=== PATIENT | male | born 1950 | race Caucasian/White ===

== ENCOUNTER 2022-05-22 10:15 | Day surgery (SDC) | payer MEDICARE, OTHER ==
[2022-05-19 14:27] LABS: BASOPHILS % (AUTO) 0.6 % (0-1); EOSINOPHILS # (AUTO) 0.2 X10'3 (0-0.9); EOSINOPHILS % (AUTO) 2.6 % (0-6); LYMPHOCYTES # (AUTO) 1.3 X10'3 (1.1-4.8); LYMPHOCYTES % (AUTO) 17.9 % (21-51); MEAN CORPUSCULAR HEMOGLOBIN 31.8 PG (27.0-31.0); MEAN CORPUSCULAR HGB CONC 34.7 g/dL (33.0-36.5); MEAN CORPUSCULAR VOLUME 91.7 FL (78-98); MEAN PLATELET VOLUME 6.7 FL (7.4-10.4); MONOCYTES # (AUTO) 0.4 X10'3 (0-0.9); MONOCYTES % (AUTO) 6.2 % (2-12); NEUTROPHILS # (AUTO) 5.1 X10'3 (1.8-7.7); NEUTROPHILS % (AUTO) 72.7 % (42-75); PRE OP HEMATOCRIT 39.1 % (42.0-52.0); PRE OP HEMOGLOBIN 13.6 g/dL (14.0-17.9); PRE OP PLATELET COUNT 251 X10'3 (140-440); RED BLOOD COUNT 4.26 X10'6 (4.70-6.10); RED CELL DISTRIBUTION WIDTH 13.1 % (11.5-14.5)
[2022-05-19 14:29] LABS: CLARITY,URINE CLEAR (Clear); COLOR,URINE YELLOW (Yellow); GLUCOSE, URINE NEGATIVE (Neg); KETONES,URINE NEGATIVE (Neg); LEUKOCYTE ESTERASE ,URINE NEGATIVE (Neg); NITRITES, URINE NEGATIVE (Neg); OCCULT BLOOD,URINE NEGATIVE (Neg); PROTEIN,URINE NEGATIVE (Neg); UROBILINOGEN,URINE 0.2 E.U/dL (0.2-1.0)
[2022-05-19 14:30] LABS: UA COLLECTION TYPE VOIDED
[2022-05-19 14:42] LABS: ALBUMIN/GLOBULIN RATIO 1.3 (1.1-1.5); ALKALINE PHOSPHATASE 50 IU/L (46-116); BLOOD UREA NITROGEN 24 MG/DL (7-18); BUN/CREATININE RATIO 12.2 (5.4-32.0); CALCIUM 9.7 MG/DL (8.5-10.1); CHLORIDE 103 MMOL/L (99-107); CREATININE 1.97 MG/DL (0.60-1.10); PRE OP ALT 26 U/L (30-65); PRE OP ANION GAP 8 (8-16); PRE OP AST 23 U/L (10-37); PRE OP BILIRUB, TOTAL 0.5 MG/DL (0.0-1.0); PRE OP GLUCOSE 152 MG/DL (70-104); PRE OP POTASSIUM 3.9 MMOL/L (3.4-5.1); PRE OP SODIUM 138 MMOL/L (135-145); TOTAL CARBON DIOXIDE 26.7 MMOL/L (24-32); TOTAL PROTEIN 7.2 G/DL (6.4-8.2); eGFR 33 ML/MIN
[~2022-05-22] VITALS: Ht 182.9 cm; Wt 83.9 kg
[2022-05-22] VITALS (11 sets, daily range): BP systolic 126–154; BP diastolic 63–94
[~2022-05-22 10:15] MED LIST: DULO30CA52 PO; FLO0.4C PO; LAMO200T10 PO; LOSA25TA96 PO; MULT-1085 PO; OMEG-44 PO; SILD20TA2 PO; SIMV10TA98 PO; ceFAZolin inj. 2,000 MG in dextrose 5%-water 100 ML IV ONE; famotidine 20mg tablet PO ONE; ringers solution, lacted 1,000 ML IV SCH
[2022-05-22] MEDS ORDERED: ondansetron/PF 4mg/2ml inj IV PRN (10:20)
[2022-05-22] MEDS ORDERED: morphine 2 MG/ML inj. syringe IV PRN (10:20)
[2022-05-22] MEDS ORDERED: fentaNYL/PF 50MCG/1 ML 2ML syringe IV PRN ×2 (10:20)
[2022-05-22] MEDS ORDERED: ringers solution, lacted 1,000 ML IV SCH (10:20)
[2022-05-22] MEDS ORDERED: labetalol 20mg/4ml (5mg/ml) syringe IV PRN (10:20)
[2022-05-22] MEDS ORDERED: hydrALAZINE 20mg/ml inj. IV PRN (10:20)
[2022-05-22] MEDS ORDERED: morphine 4 MG/ML inj SYRINge IV PRN (10:20)
[2022-05-22] MEDS ORDERED: bacitracin 15gm ointment TP ONE ×2 (13:11→13:15)
[2022-05-22] MEDS ORDERED: ROPIVAcaine 0.5% (5mg/ml) 30ml vial ONE ×2 (13:11→13:22)
[2022-05-22] MEDS ORDERED: BUPIVAcaine/PF 2.5 mg/ml (0.25%) 30ml vial ONE (13:11)
[2022-05-22] MEDS ORDERED: BUPIVAcaine/PF 2.5mg/ml (0.25%) 10ml vial ONE (13:15)
[2022-05-22] MEDS ORDERED: fentaNYL/PF 50MCG/1 ML 2ML syringe ONE (13:19)
[2022-05-22] MEDS ORDERED: midazolam 1 mg/ML 2ml injection ONE (13:19)
[2022-05-22] MEDS ORDERED: propofol inj 20 ML IV ONE (13:19)
[2022-05-22] MEDS ORDERED: ondansetron/PF 4mg/2ml inj ONE (14:37)
--- NOTE | 2022-05-22 14:51 | NUR ---
Received from OR via , accompanied by Anesthesiologist MEHUL and OR NURSE report given by Anesthesiolgist. PT DROWSY BUT ABLE TO FOLLOW COMMANDS. DENIES PAIN OR DISCOMFORT. RT FOOT ELEVATED. VSS Addendum: 05/22/22 at 1544 by Shira Fox RN Amended: Links added.
--- NOTE | 2022-05-22 16:41 | NUR ---
PT D/C HOME VIA WHEELCHAIR. CAGE TENDER BROUGHT PT TO CAR AND ASSISTED THE PT GETTING INTO THE CAR. PT HAS CRUTCHES AND WEDGE FOR ELEVATION. STATES HE HAS HIS PAIN MEDS AND F/U APPT SCHEDULED. PT TOLERATING LIQUIDS AND COMFORTABLE PAIN LEVEL. Addendum: 05/22/22 at 1656 by Shira Fox RN Amended: Links added.
== END 2022-05-22 16:41 | disposition home or self-care (01) ==
LOC: PAS 10:15
PROVIDERS: ATTEND Podiatrist Foot & Ankle Surgery
DX: S82.831A Other fracture of upper and lower end of right fibula, initial encounter for closed fracture (principal); I10 Essential (primary) hypertension; W19.XXXA Unspecified fall, initial encounter; Y93.89 Activity, other specified; Y92.89 Other specified places as the place of occurrence of the external cause; Y99.8 Other external cause status; Z79.899 Other long term (current) drug therapy; Z98.890 Other specified postprocedural states; G89.18 Other acute postprocedural pain
CPT/HCPCS: 27792; 36415; 64450; 76942; 80053; 81003; 82948; 85025; 93005; A6223; C1713; C1776; J0690; J2250; J2270; J2405; J2704; J2795; J3010; J7030; J7060; J7120; Z7506; Z7508; Z7512; A4618; A6253; A6449; A7000; J3490

== ENCOUNTER 2023-08-02 18:29 | Emergency (ER) | payer MEDICARE, OTHER ==
[~2023-08-02 18:29] MED LIST changes: +LOSA-415 PO; -LOSA25TA96 PO; -ceFAZolin inj. 2,000 MG in dextrose 5%-water 100 ML IV ONE; -famotidine 20mg tablet PO ONE; -ringers solution, lacted 1,000 ML IV SCH
[2023-08-02 19:26] LABS: BASOPHILS # (AUTO) 0.1 X10'3 (0-0.2); EOSINOPHILS # (AUTO) 0.2 X10'3 (0-0.9); EOSINOPHILS % (AUTO) 2.5 % (0-6); HEMATOCRIT 36.2 % (42.0-52.0); HEMOGLOBIN 12.4 g/dl (14.0-17.9); LYMPHOCYTES # (AUTO) 1.2 X10'3 (1.1-4.8); LYMPHOCYTES % (AUTO) 18.7 % (21-51); MEAN CORPUSCULAR HEMOGLOBIN 31.8 PG (27.0-31.0); MEAN CORPUSCULAR HGB CONC 34.2 g/dL (33.0-36.5); MEAN PLATELET VOLUME 6.6 FL (7.4-10.4); MONOCYTES # (AUTO) 0.3 X10'3 (0-0.9); MONOCYTES % (AUTO) 5.6 % (2-12); NEUTROPHILS # (AUTO) 4.5 X10'3 (1.8-7.7); NEUTROPHILS % (AUTO) 72.2 % (42-75); PLATELET COUNT 207 X10'3 (140-440); RED BLOOD COUNT 3.89 X10'6 (4.70-6.10); RED CELL DISTRIBUTION WIDTH 12.9 % (11.5-14.5); WHITE BLOOD COUNT 6.2 X10'3 (4.5-11.0)
[2023-08-02 19:41] LABS: ALANINE AMINOTRANSFERASE 23 U/L (12-78); ALBUMIN 3.7 G/DL (3.4-5.0); ALBUMIN/GLOBULIN RATIO 1.1 (1.1-1.5); ALKALINE PHOSPHATASE 41 IU/L (46-116); ANION GAP 10 (8-16); ASPARTATE AMINO TRANSFERASE 22 U/L (10-37); BILIRUBIN,TOTAL 0.5 MG/DL (0.1-1.0); BLOOD UREA NITROGEN 29 MG/DL (7-18); BUN/CREATININE RATIO 11.2 (10.0-20.0); CALCIUM 9.4 MG/DL (8.5-10.1); CHLORIDE 105 MMOL/L (99-107); CREATININE 2.59 MG/DL (0.60-1.10); ETHANOL < 10 MG/DL (<10); GLUCOSE 117 MG/DL (70-104); POTASSIUM 4.1 MMOL/L (3.5-5.1); SODIUM 140 MMOL/L (135-145); TOTAL CARBON DIOXIDE 25.1 MMOL/L (24-32); TOTAL PROTEIN 7.2 G/DL (6.4-8.2); eGFR 24 ML/MIN
[2023-08-02 19:47] LABS: URINE AMPHETAMINE SCREEN NEGATIVE (Neg); URINE BARBITUATE SCREEN NEGATIVE (Neg); URINE BENZODIAZEPINES SCREEN NEGATIVE (Neg); URINE CANNABINOID SCREEN NEGATIVE (Neg); URINE COCAINE SCREEN NEGATIVE (Neg); URINE METHADONE SCREEN NEGATIVE (Neg); URINE OPIATE SCREEN NEGATIVE (Neg); URINE PHENCYCLIDINE SCREEN NEGATIVE (Neg)
[2023-08-03] MEDS ORDERED: traZODone 50mg tablet PO PRN (00:20)
[2023-08-03 03:08] LABS: BILIRUBIN,URINE NEGATIVE (Neg); CLARITY,URINE CLEAR (Clear); COLOR,URINE YELLOW (Yellow); GLUCOSE, URINE NEGATIVE (Neg); KETONES,URINE NEGATIVE (Neg); LEUKOCYTE ESTERASE ,URINE NEGATIVE (Neg); NITRITES, URINE NEGATIVE (Neg); OCCULT BLOOD,URINE NEGATIVE (Neg); PH,URINE 6.5 (4.8-8.0); PROTEIN,URINE NEGATIVE (Neg); UROBILINOGEN,URINE 0.2 E.U/dL (0.2-1.0)
[2023-08-03 03:14] LABS: UA COLLECTION TYPE CLN CATCH MIDSTREAM
[2023-08-03 06:06] VITALS: BP 124/74; PULSE 70; TEMP 97; O2SAT 98
[2023-08-03 07:35] VITALS: RESP 17
[2023-08-03] MEDS: quetiapine 100mg tablet PO SCH ×2 (07:42→12:20)
[2023-08-03] MEDS ORDERED: duloxetine 30mg CAPSULE.DR PO SCH (08:00)
[2023-08-03] MEDS ORDERED: multivitamins, therapeutics tablet PO SCH (08:00)
[2023-08-03] MEDS ORDERED: OMEGA-3/DHA/EPA/FISH OIL 1 EACH CAPSULE.DR PO SCH (08:00)
[2023-08-03] MEDS ORDERED: fluvoxamine 25 MG tablet PO SCH (08:00)
[2023-08-03] MEDS ORDERED: losartan 25mg tablet PO SCH (21:00)
[2023-08-03] MEDS ORDERED: tamsulosin 0.4mg capsule PO SCH (21:00)
[2023-08-03] MEDS ORDERED: lamoTRIgine 100mg tablet PO SCH (21:00)
[2023-08-03] MEDS ORDERED: atorvastatin 10mg tablet PO SCH (21:00)
[2023-08-03] MEDS ORDERED: quetiapine 100mg tablet PO SCH (21:00)
== END 2023-08-03 17:03 | disposition home or self-care (01) ==
LOC: ER 18:29
DX: R45.851 Suicidal ideations (principal); Z20.822 Contact with and (suspected) exposure to COVID-19; F32.A Depression, unspecified; N18.9 Chronic kidney disease, unspecified; Z88.8 Allergy status to other drugs, medicaments and biological substances; Z79.899 Other long term (current) drug therapy
CPT/HCPCS: 36415; 80053; 80305; 80320; 81003; 84443; 85025; 87811; 99285

== ENCOUNTER 2023-08-09 15:59 | Emergency (ER) | payer MEDICARE, OTHER ==
[~2023-08-09] VITALS: Ht 182.9 cm; Wt 81.1 kg
[~2023-08-09 15:59] MED LIST changes: -DULO30CA52 PO; -LAMO200T10 PO; -SILD20TA2 PO
[2023-08-09 17:21] LABS: BILIRUBIN,URINE NEGATIVE (Neg); CLARITY,URINE CLEAR (Clear); COLOR,URINE YELLOW (Yellow); GLUCOSE, URINE NEGATIVE (Neg); KETONES,URINE NEGATIVE (Neg); LEUKOCYTE ESTERASE ,URINE NEGATIVE (Neg); NITRITES, URINE NEGATIVE (Neg); OCCULT BLOOD,URINE NEGATIVE (Neg); PH,URINE 6.5 (4.8-8.0); PROTEIN,URINE NEGATIVE (Neg); UROBILINOGEN,URINE 0.2 E.U/dL (0.2-1.0)
[2023-08-09 17:39] LABS: UA COLLECTION TYPE VOIDED
[2023-08-09] MEDS ORDERED: HYDR-3686 PO (17:40)
[2023-08-09 17:42] LABS: URINE AMPHETAMINE SCREEN NEGATIVE (Neg); URINE BARBITUATE SCREEN NEGATIVE (Neg); URINE BENZODIAZEPINES SCREEN NEGATIVE (Neg); URINE CANNABINOID SCREEN NEGATIVE (Neg); URINE COCAINE SCREEN NEGATIVE (Neg); URINE METHADONE SCREEN NEGATIVE (Neg); URINE OPIATE SCREEN NEGATIVE (Neg); URINE PHENCYCLIDINE SCREEN NEGATIVE (Neg)
[2023-08-09 18:33] LABS: BASOPHILS % (AUTO) 0.6 % (0-1); EOSINOPHILS # (AUTO) 0.2 X10'3 (0-0.9); EOSINOPHILS % (AUTO) 2.5 % (0-6); HEMATOCRIT 39.3 % (42.0-52.0); LYMPHOCYTES # (AUTO) 1.2 X10'3 (1.1-4.8); LYMPHOCYTES % (AUTO) 17.6 % (21-51); MEAN CORPUSCULAR HEMOGLOBIN 31.2 PG (27.0-31.0); MEAN CORPUSCULAR HGB CONC 33.2 g/dL (33.0-36.5); MEAN PLATELET VOLUME 6.8 FL (7.4-10.4); MONOCYTES # (AUTO) 0.4 X10'3 (0-0.9); MONOCYTES % (AUTO) 6.4 % (2-12); NEUTROPHILS % (AUTO) 72.9 % (42-75); PLATELET COUNT 225 X10'3 (140-440); RED BLOOD COUNT 4.18 X10'6 (4.70-6.10); RED CELL DISTRIBUTION WIDTH 13.4 % (11.5-14.5); WHITE BLOOD COUNT 6.8 X10'3 (4.5-11.0)
[2023-08-09 18:49] LABS: ALANINE AMINOTRANSFERASE 27 U/L (12-78); ALBUMIN 4.2 G/DL (3.4-5.0); ALBUMIN/GLOBULIN RATIO 1.1 (1.1-1.5); ALKALINE PHOSPHATASE 42 IU/L (46-116); ANION GAP 9 (8-16); ASPARTATE AMINO TRANSFERASE 22 U/L (10-37); BILIRUBIN,TOTAL 0.7 MG/DL (0.1-1.0); BLOOD UREA NITROGEN 25 MG/DL (7-18); BUN/CREATININE RATIO 10.8 (10.0-20.0); CHLORIDE 105 MMOL/L (99-107); CREATININE 2.31 MG/DL (0.60-1.10); GLUCOSE 103 MG/DL (70-104); POTASSIUM 4.1 MMOL/L (3.5-5.1); SODIUM 140 MMOL/L (135-145); TOTAL CARBON DIOXIDE 25.7 MMOL/L (24-32); TOTAL PROTEIN 7.9 G/DL (6.4-8.2); eCRCL 30 ML/MIN; eGFR 28 ML/MIN
[2023-08-09 18:58] LABS: THYROID STIMULATING HORMONE 1.09 ulU/ml (0.34-4.50)
[2023-08-09 18:59] LABS: ETHANOL < 10 MG/DL (<10)
[2023-08-09] MEDS ORDERED: TRAZ-251 PO (21:21)
[2023-08-09] MEDS ORDERED: DULO60CA65 PO (21:21)
[2023-08-09] MEDS ORDERED: QUET100T34 PO (21:21)
[2023-08-09] MEDS ORDERED: traZODone 50mg tablet PO PRN (21:55)
[2023-08-09] MEDS ORDERED: quetiapine 100mg tablet PO ONE (22:05)
[2023-08-10] MEDS ORDERED: LORazepam 1 MG tablet PO ONE (01:55)
[2023-08-10] MEDS ORDERED: duloxetine 30mg CAPSULE.DR PO SCH (08:00)
[2023-08-10] MEDS ORDERED: OMEGA-3/DHA/EPA/FISH OIL 1 EACH CAPSULE.DR PO SCH (08:00)
[2023-08-10] MEDS ORDERED: multivitamins, therapeutics tablet PO SCH (08:00)
[2023-08-10 17:32] VITALS: BP 143/94; PULSE 85; RESP 20; TEMP 97.9; O2SAT 97
[2023-08-10] MEDS ORDERED: tamsulosin 0.4mg capsule PO SCH (21:00)
[2023-08-10] MEDS ORDERED: quetiapine 100mg tablet PO SCH (21:00)
[2023-08-10] MEDS ORDERED: losartan 25mg tablet PO SCH (21:00)
[2023-08-10] MEDS ORDERED: atorvastatin 10mg tablet PO SCH (21:00)
== END 2023-08-10 18:29 | disposition home or self-care (01) ==
LOC: ER 16:00
DX: R45.851 Suicidal ideations (principal); Z20.822 Contact with and (suspected) exposure to COVID-19; F32.A Depression, unspecified; N18.9 Chronic kidney disease, unspecified; Z88.8 Allergy status to other drugs, medicaments and biological substances; Z79.899 Other long term (current) drug therapy
CPT/HCPCS: 36415; 80053; 80305; 80320; 81003; 84443; 85025; 87811; 99285